=== PATIENT | female | born 1950 | race African-American/Black ===

== ENCOUNTER 2023-09-04 03:30 | Emergency (ER) | payer MEDICARE, BC ==
[~2023-09-04] VITALS: Ht 160 cm; Wt 62.0 kg
[2023-09-04 03:34] VITALS: O2SAT 98
[2023-09-04] MEDS: KETOROLAC 30MG/ML VIAL IV STA (04:33)
[2023-09-04] MEDS: SODIUM CHLORIDE 0.9% 1,000 ML IV ONE (04:34)
[2023-09-04] MEDS: ONDANSETRON HCL 4MG/2ML INJ IV STA (04:34)
[2023-09-04 04:48] LABS: BASOPHILS % 0.9 % (0.0-2.0); DIFFERENTIAL COMMENT 0; EOSINOPHILS % 0.5 % (0.0-5.0); HEMATOCRIT. 39.9 % (36.0-48.0); HEMOGLOBIN. 13.4 g/dL (12.0-16.0); LYMPHOCYTES % 8.5 % (20.0-50.0); MEAN CORPUSCULAR HEMOGLOBIN 35.3 pg (28.0-32.0); MEAN CORPUSCULAR HGB CONC 33.7 g/dL (31.0-37.0); MEAN CORPUSCULAR VOLUME 104.9 fL (81.0-99.0); MEAN PLATELET VOLUME 7.5 fl (7.4-10.4); MONOCYTES % 9.7 % (2.0-8.0); NEUTROPHILS % 80.4 % (40.0-76.0); PLATELET 347 x1000/uL (130-400); RED BLOOD CELL COUNT 3.81 mill/uL (4.2-5.4); RED CELL DISTRIBUTION WIDTH 14.8 % (11.6-14.6)
[2023-09-04 04:55] LABS: CARBON DIOXIDE 23 mEq/L (21-32); CHLORIDE 109 mEq/L (98-107); POTASSIUM 3.3 mEq/L (3.5-5.1); SODIUM 142 mEq/L (136-145)
[2023-09-04 04:56] LABS: CALCIUM 9.5 mg/dL (8.7-10.4)
[2023-09-04 05:01] LABS: CREATININE 0.7 mg/dL (0.6-1.0); GLUCOSE 103 mg/dL (70-105); UREA NITROGEN BLOOD 6 mg/dL (9-23)
[2023-09-04 05:03] LABS: ALANINE AMINOTRANSFERASE < 7 IU/L (10-49); ALBUMIN 4.9 g/dL (3.2-4.8); ASPARTATE AMINOTRANSFERASE 24 IU/L (<34); BILIRUBIN DIRECT 0.1 mg/dL (<=3.0); BILIRUBIN TOTAL 0.3 mg/dL (0.1-1.0); PROTEIN TOTAL 7.7 g/dL (6.0-8.3)
[2023-09-04 05:51] LABS: PROTHROMBIN TIME 10.7 sec (9.6-11.0)
[2023-09-04] MEDS ORDERED: MORPHINE SULFATE 4 MG/ML INJ (FOR IV/IM USE) IV STA (06:04)
[2023-09-04] MEDS ORDERED: ONDANSETRON HCL 4MG/2ML INJ IV STA (06:04)
[2023-09-04 08:15] VITALS: TEMP 98.6
[2023-09-04] MEDS: ONDANSETRON HCL 4MG/2ML INJ IV NR (08:31)
[2023-09-04] MEDS: MORPHINE SULFATE 4 MG/ML INJ (FOR IV/IM USE) IV NR (08:31)
[2023-09-04 12:52] VITALS: BP 160/103; PULSE 99; RESP 20
[2023-09-04] MEDS: MORPHINE SULFATE 4 MG/ML INJ (FOR IV/IM USE) IV ONE (12:52)
[2023-09-04] MEDS: KETOROLAC 15MG/ML VIAL IV NR (15:12)
[2023-09-04 20:00] LABS: PHOSPHORUS 3.9 mg/dL (2.5-4.9)
== END 2023-09-04 22:29 | disposition left against medical advice (07) ==
LOC: ER 03:30 → EDBEDREQ 06:23 → ER 22:29
DX: R10.33 Periumbilical pain (principal); R11.0 Nausea
CPT/HCPCS: 99285; 74176; 96374; 96361; 76857; 96375; 80076; 80048; 83690; 83735; 84100; 85025; 85610; 36415; 96376; J1885 ×2; J2405; J2270; J7030